=== PATIENT | female | born 2000 | race Caucasian/White ===

== ENCOUNTER → 2024-05-03 12:04 | Outpatient (REF) | payer BC, SELFPAY ==
[2024-05-03 15:08] LABS: % Basophils 0.8 % (0-2); % Eosinophils 1.6 % (0-6); % Immature Granulocytes 0.2 % (0-0.5); % Lymphocytes 25.6 % (20.5-51.1); % Monocytes 7.1 % (1.7-9.3); % Neutrophils 64.7 % (42.2-75.2); Absolute Basophils 0.1 10^3/uL (0-0.2); Absolute Eosinophils 0.2 10^3/uL (0-0.7); Absolute Lymphocytes 2.6 10^3/uL (1.2-3.4); Absolute Monocytes 0.7 10^3/uL (0.1-0.6); Absolute Neutrophils 6.6 10^3/uL (1.4-6.5); Hematocrit 41.4 % (37.0-47.0); Hemoglobin 13.6 g/dL (12.0-16.0); Mean Corp Hgb Conc. 32.9 g/dL (33.0-37.0); Mean Corpuscular Hgb 28.5 pg (27.0-31.0); Mean Corpuscular Volume 86.8 fL (81.0-99.0); Mean Platelet Volume 10.3 fL (7.4-10.4); Nucleated Red Blood Cells % 0 %; Platelet Count 346 10^3/uL (130-400); Red Blood Cell Count 4.77 10^6/uL (4.20-5.40); Red Cell Dist. Width 11.9 % (11.5-14.5); White Blood Cell Count 10.1 10^3/uL (4.8-10.8)
[2024-05-03 15:16] LABS: ALT (SGPT) 21 U/L (0-35); AST (SGOT) 26 U/L (14-36); Albumin 4.6 g/dl (3.5-5.0); Alkaline Phosphatase 76 U/L (38-126); Blood Urea Nitrogen 12 mg/dl (7-17); Calcium 10.1 mg/dl (8.4-10.2); Carbon Dioxide 27 mmol/L (22-30); Chloride 104 mmol/L (98-107); Glucose 82 mg/dl (70-99); HDL Cholesterol 75 mg/dl; LDL Cholesterol, Calculated 128 mg/dl; Potassium 4.6 mmol/L (3.5-5.1); Sodium 139 mmol/L (135-145); Total Bilirubin 1.1 mg/dl (0.2-1.3); Total Cholesterol 219 mg/dl (50-199); Total Protein 7.5 g/dl (6.3-8.2); Triglyceride 81 mg/dl (10-149); Very Low Density Lipoprotein 16 mg/dl (0-30); eGFR > 60.00
== END ==
LOC: HWLAB 12:04
PROVIDERS: ATTENDING PHYSICIAN Nurse Practitioner
DX: Z00.00 Encounter for general adult medical examination without abnormal findings (principal)
CPT/HCPCS: 36415; 80053; 80061; 84443; 85025

== ENCOUNTER 2024-08-08 16:46 | Emergency (ER) | payer BC, SELFPAY ==
[2024-08-08 16:54] VITALS: BMI 20.6
--- NOTE | 2024-08-08 17:00 | ED.GENMED ---
History of Present Illness
General
Chief Complaint: Musculo-Skeletal Complaint
Time Seen by Provider: 08/08/24 16:49
History of Present Illness
History of Present Illness:
23 yo female w/ no known PMH presents to the Emergency Department for evaluation of neck pain after an axial load injury yesterday. Ran into her brother with her head flexed forward, since that time is reporting central neck pain/pressure, as well
as L ulnar hand paresthesia with neck extension, and 'head pressure'/dizziness with forward flexion. She only has mild pain when the neck is held in neutral position. No vision changes, chest pain, SOB, N/V.
Review of Systems
Review of Systems
Allergies reviewed?: Yes
All Other Systems: ROS reviewed and negative except as documented in HPI and ROS
Phy Exam
Physical Exam
Physical Exam:
GEN: Well appearing, NAD, WDWN
HEENT: Oral mucosa moist, no scleral icterus, no nasal congestion. + midline cervical spine tenderness, no crepitus or deformity
Cardiac: Regular rate
Lung: No respiratory distress, no tachypnea
MSK: No gross deformity or injuries
Skin: Good color, no pallor or jaundice, no rashes
Neuro: AO x3; CN II-XII grossly intact. BUE strength 5/5 in all babb, sensation intact and symmetric. BLE strength 5/5 in all babb, sensation intact and symmetric
Psych: Calm, cooperative
Course
Orders/Labs/Results
Orders:
Orders
08/08/24 16:59
CT Angio Neck W/Wo Iv Contrast [CT Neck Angio W/wo Iv Contrast] Urgent
Comment:
Reason For Exam: neck pain/paresthesia/dizziness post trauma
CT Cervical Spine W/o Iv Contr Urgent
Comment:
Reason For Exam: neck pain s/p trauma
08/08/24 17:00
Test Result ONCE
08/08/24 17:02
Basic Metabolic Panel Urgent
HCG, Serum Qualitative Screen Urgent
08/08/24 19:10
Cervical Collar- Treatment ONCE
Collar Type: Hard Cervical Collar
Abnormal Lab Results
08/08/24
17:02
Calcium 10.3 H mg/dl
(8.4-10.2)
08/08/24 17:02
Vital Signs
Initial and Last Documented VS:
Initial Vital Signs
Pulse Resp BP Pulse Ox
79 18 129/81 99
08/08/24 19:38 08/08/24 19:38 08/08/24 19:38 08/08/24 19:38
Last Documented Vital Signs
Pulse Resp BP Pulse Ox
79 18 129/81 99
08/08/24 19:38 08/08/24 19:38 08/08/24 19:38 08/08/24 19:38
MDM/Problems Addressed
MDM/Problems Addressed:
Imaging in ED unremarkable, however due to positional neurologic symptoms, case was d/w neurosurgery alternative dispute resolution mediator who recommends hard C collar and outpatient MRI. Outpatient orders written, pt to remain in collar until resolution of MRI results, if any
abnormalities pertaining to cord or ligaments will need continued immobilization and neurosurg f/u
*Critical Care Note
Total Time (30-74mins, 75-104mins- exclusive of procedures): Not Applicable
ED Attending Note
-
Portions of this chart may have been created with voice recognition software.� Occasional wrong word or��sound alike� substitutions may have occurred due to the inherent limitations of voice recognition software.
Discharge Plan
Departure
Patient Disposition: Home (Routine Discharge)
Date of Disposition: 08/08/24
Time of Disposition: 19:16
Patient with high blood pressure during this ER visit?: No
Discharge Problem:
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
Instructions: Cervical Sprain ED
Referrals:
Deysi Burks MD [Active] -
Kristel Kebede CRNP [Family Provider] -
Activity Restrictions/Additional Instructions:
Remain in the cervical collar until MRI result is FINALIZED
If the MRI is normal, you may remove the collar and no further follow up is needed
If the MRI shows any spinal cord or ligamentous injuries, you will need to follow up with neurosurgery and remain in the collar until that follow up appointment
Interventions
Interventions:
*Risk Screen - Suicide Last Done: 08/08/24 16:50
*General Assessment Last Done: 08/08/24 16:50
*Neglect/Abuse Screening Last Done: 08/08/24 16:50
ED- Fall Risk Assessment Last Done: 08/08/24 16:55
*ED COVID-19 Vaccine History Last Done: 08/08/24 16:50
*Nursing Disposition Last Done: 08/08/24 19:39
ED-Musculoskeletal Assessment Last Done: 08/08/24 16:50
Discharge Date and Time
Discharge Date/Time: 08/08/24 19:40
Print Language: [id number]
[2024-08-08 17:17] LABS: HCG, Serum Qualitative Screen Negative
[2024-08-08 17:22] LABS: Blood Urea Nitrogen 11 mg/dl (7-17); Calcium 10.3 mg/dl (8.4-10.2); Carbon Dioxide 23 mmol/L (22-30); Chloride 106 mmol/L (98-107); Estimated Creatinine Clearance 93 ml/min; Glucose 92 mg/dl (70-99); Potassium 4.1 mmol/L (3.5-5.1); Sodium 141 mmol/L (135-145); eGFR > 60.00
[2024-08-08 19:38] VITALS: BP 129/81
== END 2024-08-08 19:40 | disposition home or self-care (01) ==
LOC: EMR 16:46
PROVIDERS: Physician Assistant; EMERGENCY PHYSICIAN Emergency Medicine; FAMILY PHYSICIAN Nurse Practitioner
DX: M54.2 Cervicalgia (principal); S13.4XXA Sprain of ligaments of cervical spine, initial encounter; X58.XXXA Exposure to other specified factors, initial encounter
CPT/HCPCS: 99284; 70498; 72125; 80048; 84703; Q9967

== ENCOUNTER → 2024-08-09 10:38 | Outpatient (REF) | payer BC, SELFPAY | LOC: MRI 3T 10:38 | PROVIDERS: ATTENDING PHYSICIAN Physician Assistant; FAMILY PHYSICIAN Nurse Practitioner | DX: M54.2 Cervicalgia (principal) | CPT/HCPCS: 72141 ==

== ENCOUNTER → 2024-08-17 12:30 | Outpatient (REF) | payer BC, SELFPAY | LOC: CPAP 12:30 | PROVIDERS: ATTENDING PHYSICIAN Nurse Practitioner Family | DX: Z01.411 Encounter for gynecological examination (general) (routine) with abnormal findings (principal) | CPT/HCPCS: G0123 ==

== ENCOUNTER → 2025-08-02 11:18 | Outpatient (REF) | payer BC, SELFPAY ==
[2025-08-02 15:42] LABS: Hematocrit 36.8 % (37.0-47.0); Hemoglobin 12.1 g/dL (12.0-16.0); Mean Corp Hgb Conc. 32.9 g/dL (33.0-37.0); Mean Corpuscular Volume 85.8 fL (81.0-99.0); Nucleated Red Blood Cells % 0 %; Platelet Count 330 10^3/uL (130-400); Red Cell Dist. Width 11.9 % (11.5-14.5)
[2025-08-02 15:49] LABS: ALT (SGPT) 18 U/L (0-35); AST (SGOT) 20 U/L (14-36); Albumin 4.4 g/dl (3.5-5.0); Alkaline Phosphatase 52 U/L (38-126); Blood Urea Nitrogen 10 mg/dl (7-17); Calcium 9.6 mg/dl (8.4-10.2); Carbon Dioxide 24 mmol/L (22-30); Chloride 106 mmol/L (98-107); Glucose 85 mg/dl (70-99); HDL Cholesterol 65 mg/dl; LDL Cholesterol, Calculated 75 mg/dl; Potassium 4.3 mmol/L (3.5-5.1); Sodium 136 mmol/L (135-145); Total Protein 7.2 g/dl (6.3-8.2); Very Low Density Lipoprotein 18 mg/dl (0-30); eGFR > 60.00
== END ==
LOC: HWLAB 11:18
PROVIDERS: ATTENDING PHYSICIAN Nurse Practitioner Adult Health
DX: Z76.89 Persons encountering health services in other specified circumstances (principal); Z00.00 Encounter for general adult medical examination without abnormal findings; Z79.899 Other long term (current) drug therapy; Z13.29 Encounter for screening for other suspected endocrine disorder; Z78.9 Other specified health status
CPT/HCPCS: 36415; 80053; 80061; 84443; 85025; 86762; 86765